=== PATIENT | female | born 1985 | race Caucasian/White ===

== ENCOUNTER 2019-03-17 15:23 | Emergency (ER) | payer SELFPAY ==
[~2019-03-17] VITALS: Ht 160 cm; Wt 61.2 kg
== END 2019-03-17 20:07 | disposition left against medical advice (07) ==
LOC: ED 15:23
DX: O46.92 Antepartum hemorrhage, unspecified, second trimester (principal); Z3A.21 21 weeks gestation of pregnancy

== ENCOUNTER → 2021-09-28 | Outpatient (CLI) | payer SELFPAY | LOC: RAD 12:11 | PROVIDERS: ATTEND Nurse Practitioner Family | DX: M25.531 Pain in right wrist (principal) ==

== ENCOUNTER → 2024-02-15 | Outpatient (CLI) | payer SELFPAY | END | disposition home or self-care (01) | LOC: US 12:17 | PROVIDERS: ATTEND Nurse Practitioner Women's Health | DX: R10.2 Pelvic and perineal pain (principal) ==